=== PATIENT | male | born 1960 | race Caucasian/White ===

== ENCOUNTER 2017-08-13 16:09 | Inpatient (IN) ==
--- NOTE | 2017-08-13 16:24 | History & Physical Report ---
<Linda Condon - Last Filed: 08/13/17 16:35> History of Present Illness Date: 08/13/17 Chief complaint: "I'm sick of drinking" HPI: Mariano Mei is a 57 y/o male transferred to [facility] from [facility] in [place] for management of alcohol withdrawal symptoms. He's been drinking for years; he drinks about a quart of whiskey daily. He has been sober in the past but doesn't know for how long. He endorses anorexia and nausea. He developed "jet black" colored stools today. He denies abdominal pain but has had some intermittent bloating which he attributes to poor nutrition. He denies feeling weak or dizzy. He complains of "cold sweats" but denies any illnesses. No shaking or tremors currently and he denies a hx of EtOH withdrawal sz, hallucinations, or DTs. He denies SOA or chest pain. No injuries or wounds but states that he fell a couple of days ago. He denies easy bruising or bleeding. At [facility], labs showed elevated LFTs, hgb of 15.3, plt 185, and chemistries were stable. EtOH level was 387. EKG showed sinus tach. He received multiple doses of lorazepam while hospitalized for agitation. Review of Systems All systems PM: 10-point ROS was reviewed, no additional remarkable complaints except - Constitutional Constitutional: Present: anorexia, other (cold sweats). Absent: chills - EENMT Eyes: Absent: change in vision Nose: Absent: obstruction Mouth/Throat: Absent: sore throat - Cardiovascular Cardiovascular: Absent: chest pain - Respiratory Respiratory: Absent: cough - Gastrointestinal Gastrointestinal: Present: melena ("Jet black" - started today), nausea. Absent : abdominal pain, constipation, diarrhea, vomiting - Genitourinary Genitourinary: Absent: dysuria - Musculoskeletal Musculoskeletal: Absent: back pain, muscle weakness - Integumentary/Breasts Integumentary: Absent: rash, wounds - Neurological Neurological: Present: frequent falls (fell a couple of days ago) - Psychiatric Psychiatric: Present: anxiety, depression - Endocrine Endocrine: Absent: palpitations - Hematologic/Lymphatic Hematologic/Lymphatic: Absent: easy bleeding, easy bruising PFSH Alcohol abuse Surgical History: B/L ankle ORIF Family History: Father of lung cancer Mother - still living, has heart disease - Social History Smoking status: Current every day smoker Packs per day: 1 Packs-years: 30 Substance use type: does not use Substance last used: days (ago) (3-4) Alcohol intake frequency: 3 or more drinks per day (quart of whiskey/bourbon per day) Current occupational status: unemployed Social history: No PCP Medications Allergies Allergy/AdvReac Type Severity Reaction Status Date / Time No Known Allergies Allergy Verified 08/13/17 17:09 Exam Telemetry Rhythm: Sinus Tachycardia (occasional PAC) - Constitutional Present: no acute distress, thin - Routine HEENT Exam Head: Present: normocephalic Eye: Present: EOMI. Absent: conjunctival icterus ENT: Present: mucous membranes dry, oropharynx clear - Routine Neck Exam Present: supple - Routine Respiratory Exam Present: CTA bilaterally - Routine Cardiovascular Exam Present: RRR, S1, S2 - Routine Abdominal Exam Present: soft, normoactive bowel sounds, non distended, non tender. Absent: rebound, guarding - Routine Extremities Exam Present: no edema, pulses intact - Routine Skin Exam Present: intact, dry, warm - Routine Neurological Exam Present: alert, oriented X3, CN II-XII intact, normal speech - Routine Psychiatric Exam Present: normal thought process, cooperative. Absent: normal affect (flat affect; drowsy but appropriate) Assessment and Plan (1) Alcohol withdrawal Current visit: Yes Status: Acute DVT Prophylaxis: SCD's GI Prophylaxis: Protonix Resuscitation Status: Full Code Assessment and Plan: Impression EtOH abuse; withdrawal Melena Elevated LFTs (POA) Hypocalcemia (POA at outside facility) Tobacco dependency Plan Admit to CCU under the hospitalist service. Labs ordered upon arrival - pending. Sz precautions; Ativan, Serax, phenobarbital PRN. Start folate, thiamine, and MVI. Check stools for occult blood. Start PPI for GI protection - at high risk d/t chronic EtOH and tobacco use. Zofran PRN nausea. Further orders pending lab results. Discussed with Dr. Herron. Hospital Course Summary Disclaimer: The visit summary below is not to be considered part of the above Progress Note. Hospital Course: 08/13/17 Impression EtOH abuse; withdrawal Melena Elevated LFTs (POA) Hypocalcemia (POA at outside facility) Tobacco dependency Plan Admit to CCU under the hospitalist service. Labs ordered upon arrival - pending. Sz precautions; Ativan, Serax, phenobarbital PRN. Start folate, thiamine, and MVI. Check stools for occult blood. Start PPI for GI protection - at high risk d/t chronic EtOH and tobacco use. Zofran PRN nausea. Further orders pending lab results. Discussed with Dr. Herron. <Artie Herron D - Last Filed: 08/13/17 18:09> History of Present Illness Date: 08/13/17 Exam Height/Weight/BMI: Height 1.73 m Weight 65 kg Body Mass Index 21.7 Results - Labs CBC & Chem 7: 08/13/17 16:44 08/13/17 16:44 Assessment and Plan (1) Alcohol withdrawal Current visit: Yes Status: Acute Assessment and Plan: Impression EtOH abuse; withdrawal Melena Elevated LFTs (POA) Hypocalcemia (POA at outside facility) Hypophosphatemia (POA) Elevated lipase Nausea/vomiting Anorexia Tobacco dependency Have independently interviewed and examined patient. Chart reviewed. Case discussed with Dr Alves at [facility] and my [employer]. Care plan developed with my supervision; agree with above. Admitted to [facility] last night for alcohol withdrawal. 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 Will consume about at quart of ETOH. Oral drive has been decreasing-not taking in food well for the past several days. Increase nausea and ab pain. Admitted to [facility], this morning very agitated and restless-requiring multiple doses of Ativan (Dr Alves report running out of Ativan at their facility due to his needs). Transfer to [facility] for more intensive care. Seen in CCU. Patient resting in bed. Will arouse to verbal stimuli. Answers questions with short phrases. Does feel very tried. Not little appetite. Breathing stable. Lungs: clear bilaterally, no distress CV: tachy, regular AB: soft nd, BS decreased MSE: awake but somnolent. Not restless or agitated during my evaluation. Gen: looks tired. Plan: Inpatient admission at [facility] for ETOH withdrawal failing at outlying facility. Initiate ETOH withdrawal protocol. Will schedule Serax 30mg TID. Serax and lorazepam prn. IVF of NS with KCL and Kphos. IV Protonix due to likely alcoholic gastritis. Check stool for occult blood-monitor hemoglobin. Thiamine and Folic acid daily. Zofran prn nausea. SCD for DVT prevention. Recheck lipase in am due to elevation. Will need close nursing supervision. Seizure precautions. Hospital Course Summary Disclaimer: The visit summary below is not to be considered part of the above Progress Note.
[2017-08-13] MEDS ORDERED: PANTOPRAZOLE 20 MG TABLET PO SCH (17:00)
[2017-08-13] MEDS: POTASSIUM CHLORIDE INJ 20 MEQ, POTASSIUM PHOSPHATE (mEq) 20 MEQ in NS 1,000 ML IV SCH (17:51)
[2017-08-13] MEDS: OXAZEPAM 30 MG CAPSULE PO SCH ×3 (17:51→21:22)
[2017-08-13] MEDS: PANTOPRAZOLE 40 MG INJECTION IVP SCH (17:52)
[2017-08-13] MEDS: FOLIC ACID 1 MG TABLET PO SCH ×2 (17:52→18:45)
[2017-08-13] MEDS: ONDANSETRON 4 MG/2 ML INJECTION IVP PRN (17:55)
[2017-08-13] MEDS: OXAZEPAM 15 MG CAPSULE PO PRN (21:19)
[2017-08-14] MEDS: POTASSIUM CHLORIDE INJ 20 MEQ, POTASSIUM PHOSPHATE (mEq) 20 MEQ in NS 1,000 ML IV SCH ×3 (05:11→17:31)
[2017-08-14] MEDS: OXAZEPAM 15 MG CAPSULE PO PRN ×2 (05:12→16:05)
[2017-08-14] MEDS: ONDANSETRON 4 MG/2 ML INJECTION IVP PRN (07:23)
[2017-08-14] MEDS: PANTOPRAZOLE 40 MG INJECTION IVP SCH (09:55)
[2017-08-14] MEDS: OXAZEPAM 30 MG CAPSULE PO SCH (09:55)
[2017-08-14] MEDS: NICOTINE 21 MG PATCH TD PRN (09:55)
[2017-08-14] MEDS: MULTI-VITAMIN + MINERAL TABLET PO SCH (09:55)
[2017-08-14] MEDS: FOLIC ACID 1 MG TABLET PO SCH (09:55)
[2017-08-14] MEDS: NICOTINE PATCH REMOVAL TD SCH (09:56)
--- NOTE | 2017-08-14 12:06 | Progress Note ---
Subjective: F/U: Acute ETOH withdrawal. Resting in bed, easily awakened. Feels tired, weak, and shaky. Oral intake increasing-denies nausea or ab pain, but does not reflux/dyspepsia. Breathing feels stable-not SOA or congested. Unsteady with movements-struggled to reach for cup of water at bedside. Nursing notes episode of urinary/fecal urgency with incontinence. Seraz has been helping to decrease irritability and shakiness , but not causing sedation. Has been receiving IV lorazepam which appears to be beneficial. Objective Vital signs: Temperature 98.4 F 08/14/17 07:00 Pulse Rate 80 08/14/17 10:45 Respiratory Rate 19 08/14/17 10:45 Blood Pressure 129/82 08/14/17 10:30 Pulse Oximetry 98 08/14/17 10:45 Height/Weight/BMI: Height 1.73 m Weight 69.5 kg Body Mass Index 21.7 - Constitutional Present: mild distress, well nourished, well developed, other (Appears very weak and unsteady ) - Routine HEENT Exam Head: Present: normocephalic, atraumatic Eye: Present: EOMI, PERRL ENT: Present: mucous membranes moist Comments: Tongue without fasciculations - Routine Respiratory Exam Present: decreased breath sounds. Absent: rales, respiratory distress, rhonchi , stridor, wheezes, crackles - Routine Cardiovascular Exam Present: RRR, no murmur - Routine Abdominal Exam Present: soft, non distended, non tender. Absent: normoactive bowel sounds ( decreased ), guarding - Routine Extremities Exam Present: no edema, pulses intact. Absent: cyanosis, clubbing - Routine Musculoskeletal Exam Musculoskeletal: Present: no clubbing or cyanosis - Routine Skin Exam Present: dry, warm - Routine Neurological Exam Present: alert, moving all extremities, vision grossly intact, hearing grossly intact Unsteady, decreased coordination - Routine Psychiatric Exam Present: normal affect. Absent: anxious, agitated, manic Results - Labs CBC & Chem 7: 08/14/17 04:37 08/14/17 04:37 Assessment and Plan (1) Alcohol withdrawal Current visit: Yes Status: Acute DVT Prophylaxis: SCD's GI Prophylaxis: Protonix Resuscitation Status: Full Code Assessment and Plan: Impression EtOH abuse; withdrawal Melena Elevated LFTs (POA) Hypokalemia (POA) Hypocalcemia (POA at outside facility) Hypophosphatemia (POA) Elevated lipase Nausea/vomiting Anorexia Tobacco dependency Gen debility secondary to chronic ETOH use Plan Decrease IVF of NS with KCl/Kphos to 75cc/hr. Continue with Serax but increase to 45mg TID as patient still appearing shaky. Watch for oversedation. Continue prn lorazepam. PT/OT to start working to help functional status - not sure how much patient will be able to do today as he still appears weak and unsteady. Change Protonix to oral - have Tums and Maalox as needed for dyspepsia. Start Flomax as likely has underlying BPH symptoms. SW met with patient today. RT provided tobacco cessation information. Will continue CCU monitoring - concern with his shakiness and instability would not do well on medical floor at this time. Recheck CMP in a am due to elevated LFT. Will need to repeat Mg and Phos to assure these levels are normal. Check Lipase in am - slight increase from yesterday, but not having symptoms suggestive of pancreatitis. Case discussed with CCU nursing. Time spent with patient care 25 minutes. Hospital Course Summary Disclaimer: The visit summary below is not to be considered part of the above Progress Note. Hospital Course: 08/13/17 Admission to CCU Impression EtOH abuse; withdrawal Melena Elevated LFTs (POA) Hypokalemia (POA) Hypocalcemia (POA at outside facility) Hypophosphatemia (POA) Elevated lipase Nausea/vomiting Anorexia Tobacco dependency Gen debility secondary to chronic ETOH use Plan Admit to CCU under the hospitalist service. Labs ordered upon arrival - pending. Sz precautions; Ativan, Serax, phenobarbital PRN. Start folate, thiamine, and MVI. Check stools for occult blood. Start PPI for GI protection - at high risk d/t chronic EtOH and tobacco use. Zofran PRN nausea. Further orders pending lab results. 08/14/17 Decrease IVF of NS with KCl/Kphos to 75cc/hr. Continue with Serax but increase to 45mg TID as patient still appearing shaky. Watch for oversedation. Continue prn lorazepam. PT/OT to start working to help functional status - not sure how much patient will be able to do today as he still appears weak and unsteady. Change Protonix to oral - have Tums and Maalox as needed for dyspepsia. Start Flomax as likely has underlying BPH symptoms. SW met with patient today. RT provided tobacco cessation information. Will continue CCU monitoring - concern with his shakiness and instability would not do well on medical floor at this time. Recheck CMP in a am due to elevated LFT. Will need to repeat Mg and Phos to assure these levels are normal. Check Lipase in am - slight increase from yesterday, but not having symptoms suggestive of pancreatitis.
[2017-08-14] MEDS ORDERED: MAG-AL + SIM ORAL LIQUID 30ml PO PRN (12:18)
[2017-08-14] MEDS ORDERED: CALCIUM CARBONATE Chewable 750mg TABLET PO PRN (12:18)
[2017-08-14] MEDS ORDERED: POLYETHYL GLYCOL 3350 17gm PACKET PO PRN (12:19)
[2017-08-14] MEDS ORDERED: BISACODYL 10 MG SUPPOSITORY RECTALLY PRN (12:19)
[2017-08-14] MEDS ORDERED: OXAZEPAM 30 MG CAPSULE PO SCH (15:00)
[2017-08-14] MEDS ORDERED: INFLUENZA VAC QIV 2017-18 (Fluarix*)(>=3yo) 0.5ml IM ONE (15:08)
[2017-08-14] MEDS: OXAZEPAM 15 MG CAPSULE PO SCH ×2 (15:18→22:22)
[2017-08-14] MEDS: PHENOBARBITAL 130mg/ml INJECTION IV PRN ×2 (17:46→19:33)
[2017-08-14] MEDS: TAMSULOSIN 0.4 MG CAPSULE PO SCH (22:22)
[2017-08-15] MEDS: POTASSIUM CHLORIDE INJ 20 MEQ, POTASSIUM PHOSPHATE (mEq) 20 MEQ in NS 1,000 ML IV SCH (03:34)
[2017-08-15] MEDS ORDERED: MAGNESIUM SULFATE 1gm PREMIX 1 GM/100 ML BAG IV ONE (06:08)
[2017-08-15] MEDS: FOLIC ACID 1 MG TABLET PO SCH (10:42)
[2017-08-15] MEDS: OXAZEPAM 15 MG CAPSULE PO SCH ×3 (10:42→21:13)
[2017-08-15] MEDS: PANTOPRAZOLE 40 MG TABLET PO SCH (10:43)
[2017-08-15] MEDS: MULTI-VITAMIN + MINERAL TABLET PO SCH (10:43)
[2017-08-15] MEDS: NICOTINE 21 MG PATCH TD PRN (10:49)
[2017-08-15] MEDS: ONDANSETRON 4 MG/2 ML INJECTION IVP PRN (12:52)
[2017-08-15] MEDS ORDERED: NS (Bact) 30ml INJECTION IV PRN (12:54)
[2017-08-15] MEDS: NICOTINE PATCH REMOVAL TD SCH (12:58)
[2017-08-15] MEDS: POTASSIUM CHLORIDE INJ 60 MEQ in NS 1,000 ML IV SCH (13:07)
[2017-08-15] MEDS: SALINE FLUSH 10ml SYRINGE IV PRN ×2 (13:07→13:08)
--- NOTE | 2017-08-15 15:53 | Progress Note ---
- Date 08/15/17 Subjective: The patient was seen 15:45 in ICU. Care was discussed with nursing. The patient reports doing well and slept well during the night with the help of IV lorazepam.. Denies fevers, chills, sweats. He did get up this morning and worked with a OT and PT. The nurse reports earlier today while he was up in a chair, he pulled out his IV site and when she came in he was just sitting there watching the blood drip from his arm. He has been receiving oral Serax as well as IV Ativan. Earlier today today he complained of nausea requiring Zofran. He' s had a few loose stools which the nurse describes as soft brown. 2 attempts at sending a Hemoccults have been unfruitful today with the lab. Objective Vital signs: Temperature 97.8 F 08/15/17 12:00 Pulse Rate 98 08/15/17 15:31 Respiratory Rate 20 08/15/17 15:31 Blood Pressure 141/87 H 08/15/17 15:31 Pulse Oximetry 100 08/15/17 15:31 Height/Weight/BMI: Height 5 ft 8 in Weight 151 lb 0.266 oz Body Mass Index 21.7 - Additional findings Additional findings: In general, the patient is alert and oriented 3, cooperative with exam, and in no respiratory distress. HEENT: Head is atraumatic, normocephalic, no conjunctival petechiae, no oral thrush, mucous membranes are moist and pink. Lungs: Clear to auscultation without wheezes, crackles or rhonchi CV: Regular rate and rhythm without murmur Abdomen: Soft, nontender, bowel sounds are present, there is no guarding no rebound. Extremities: No clubbing, no cyanosis, no edema. Skin: Warm and dry no sign of rash Neuro: Patient is alert and requesting food. Results - Labs CBC & Chem 7: 08/15/17 04:53 08/15/17 04:53 Labs: Laboratory Tests 08/13/17 08/13/17 08/14/17 16:44 16:44 04:37 WBC 6.1 Hgb 12.1 L Plt Count 91 L Potassium Magnesium 1.6 AST 273 H 247 H ALT 192 H 174 H Lipase 686 H 701 H 08/14/17 08/15/17 08/15/17 04:37 04:53 04:53 WBC 5.2 4.6 Hgb 11.4 L 12.4 L Plt Count 83 L 76 L Potassium 3.3 L Magnesium 1.6 AST 184 H ALT 162 H Lipase 744 H Assessment and Plan (1) Alcohol withdrawal Current visit: Yes Status: Acute GI Prophylaxis: Protonix Resuscitation Status: Full Code Assessment and Plan: Impression EtOH abuse; acute withdrawal Melena-unable to get a fecal Hemoccult thus far Elevated LFTs (POA) Hypokalemia (POA) in spite of IV and oral supplements Hypocalcemia (POA at outside facility) resolved Hypophosphatemia (POA) resolved Elevated lipase remains elevated Nausea/vomiting improved with Zofran Anorexia Tobacco dependency on patch Gen debility secondary to chronic ETOH use Plan Will change to normal saline with 60 mEq of KCl at to 75cc/hr. Continue with Serax at 45mg TID as patient seems to be responding. Continue prn lorazepam. PT/OT to start working to help functional status Continue Protonix to oral - have Tums and Maalox as needed for dyspepsia. On Flomax as likely has underlying BPH symptoms. SW met with patient and the patient can potentially go to a treatment facility after discharge. He expresses that he is interested in that as well. RT provided tobacco cessation information. Will continue CCU monitoring - concern with his shakiness and instability would not do well on medical floor at this time. Recheck CMP in a am due to elevated LFT. Check Lipase in am remains increased but not having symptoms suggestive of pancreatitis. Case discussed with CCU nursing. Hospital Course Summary Disclaimer: The visit summary below is not to be considered part of the above Progress Note. Hospital Course: 08/13/17 Admission to CCU Impression EtOH abuse; withdrawal Melena Elevated LFTs (POA) Hypokalemia (POA) Hypocalcemia (POA at outside facility) Hypophosphatemia (POA) Elevated lipase Nausea/vomiting Anorexia Tobacco dependency Gen debility secondary to chronic ETOH use Plan Admit to CCU under the hospitalist service. Labs ordered upon arrival - pending. Sz precautions; Ativan, Serax, phenobarbital PRN. Start folate, thiamine, and MVI. Check stools for occult blood. Start PPI for GI protection - at high risk d/t chronic EtOH and tobacco use. Zofran PRN nausea. Further orders pending lab results. 08/14/17 Decrease IVF of NS with KCl/Kphos to 75cc/hr. Continue with Serax but increase to 45mg TID as patient still appearing shaky. Watch for oversedation. Continue prn lorazepam. PT/OT to start working to help functional status - not sure how much patient will be able to do today as he still appears weak and unsteady. Change Protonix to oral - have Tums and Maalox as needed for dyspepsia. Start Flomax as likely has underlying BPH symptoms. FIORELLA met with patient today. RT provided tobacco cessation information. Will continue CCU monitoring - concern with his shakiness and instability would not do well on medical floor at this time. Recheck CMP in a am due to elevated LFT. Will need to repeat Mg and Phos to assure these levels are normal. Check Lipase in am - slight increase from yesterday, but not having symptoms suggestive of pancreatitis. 08/15/17 16:00 Impression EtOH abuse; acute withdrawal Melena-unable to get a fecal Hemoccult thus far Elevated LFTs (POA) Hypokalemia (POA) in spite of IV and oral supplements Hypocalcemia (POA at outside facility) resolved Hypophosphatemia (POA) resolved Elevated lipase remains elevated Nausea/vomiting improved with Zofran Anorexia Tobacco dependency on patch Gen debility secondary to chronic ETOH use Plan Will change to normal saline with 60 mEq of KCl at to 75cc/hr. Continue with Serax at 45mg TID as patient seems to be responding. Continue prn lorazepam. PT/OT to start working to help functional status Continue Protonix to oral - have Tums and Maalox as needed for dyspepsia. On Flomax as likely has underlying BPH symptoms. FIORELLA met with patient and the patient can potentially go to a treatment facility after discharge. He expresses that he is interested in that as well. RT provided tobacco cessation information. Will continue CCU monitoring - concern with his shakiness and instability would not do well on medical floor at this time. Recheck CMP in a am due to elevated LFT. Check Lipase in am remains increased but not having symptoms suggestive of pancreatitis. Case discussed with CCU nursing.
[2017-08-15 18:45] VITALS: BMI 22.9
[2017-08-15] MEDS: TAMSULOSIN 0.4 MG CAPSULE PO SCH (21:14)
[2017-08-16] MEDS: OXAZEPAM 15 MG CAPSULE PO PRN (01:46)
[2017-08-16] MEDS: POTASSIUM CHLORIDE INJ 60 MEQ in NS 1,000 ML IV SCH (02:59)
[2017-08-16] MEDS: PANTOPRAZOLE 40 MG TABLET PO SCH (06:36)
--- NOTE | 2017-08-16 08:43 | Progress Note ---
- Date 08/16/17 Subjective: Pt was seen and examined at 8:35 am in ICU. He reports that he slept well last night. His IV was discontinued earlier this am. He remains on scheduled serax at 45 mg tid with occ prn supplements. He reports occasional diarrhea. Currently undergoing an interview with substance abuse counselor at the moment. Discussed with nursing. Appetite is better, he still has some impulsive actions- pulled out IV earlier, tries to get out of bed independently, but much improved from earlier this week. Denies tremors. Objective Vital signs: Temperature 98.4 F 08/16/17 04:00 Pulse Rate 91 08/16/17 05:00 Respiratory Rate 29 H 08/16/17 05:00 Blood Pressure 140/89 H 08/16/17 05:00 Pulse Oximetry 98 08/16/17 05:00 Height/Weight/BMI: Height 5 ft 8 in Weight 151 lb Body Mass Index 22.9 - Additional findings Additional findings: In general, the patient is alert and oriented 3, cooperative with exam, and in no respiratory distress. HEENT: Head is atraumatic, normocephalic, no conjunctival petechiae, mucous membranes are moist and pink. Lungs: Clear to auscultation without wheezes, crackles or rhonchi CV: Regular rate and rhythm without murmur Abdomen: Soft, nontender, bowel sounds are present, there is no guarding no rebound. Extremities: No clubbing, no cyanosis, no edema. Skin: Warm and dry no sign of rash Neuro: Patient is alert Results - Labs CBC & Chem 7: 08/16/17 04:36 08/16/17 04:36 Assessment and Plan (1) Alcohol withdrawal Current visit: Yes Status: Acute Assessment and Plan: Impression EtOH abuse; acute withdrawal Melena-Hemoccult negative stools nurses report his stools are not bloody or melanotic Elevated LFTs (POA) improving Hypokalemia (POA) resolved, IV fluids discontinued this morning Hypocalcemia (POA at outside facility) resolved Hypophosphatemia (POA) resolved Elevated lipase remains elevated Nausea/vomiting improved with Zofran Anorexia starting to improve, nurses report he requested breakfast this morning. Tobacco dependency on patch Gen debility secondary to chronic ETOH use Plan Continue with Serax at 45mg TID as patient is tolerating without lethargy. May be able to titrate down to 30 mg 3 times a day in the next few days.. Continue prn lorazepam. PT/OT working to improve his functional status Continue Protonix - have Tums and Maalox as needed for dyspepsia. On Flomax as likely has underlying BPH symptoms- may be able to discontinue this soon and observe for further symptoms . RT provided tobacco cessation information. May be able to transfer to a substance abuse program if accepted Lipase remains increased but not having symptoms suggestive of pancreatitis. Case discussed with CCU nursing. Hospital Course Summary Disclaimer: The visit summary below is not to be considered part of the above Progress Note. Hospital Course: 08/13/17 Admission to CCU Impression EtOH abuse; withdrawal Melena Elevated LFTs (POA) Hypokalemia (POA) Hypocalcemia (POA at outside facility) Hypophosphatemia (POA) Elevated lipase Nausea/vomiting Anorexia Tobacco dependency Gen debility secondary to chronic ETOH use Plan Admit to CCU under the hospitalist service. Labs ordered upon arrival - pending. Sz precautions; Ativan, Serax, phenobarbital PRN. Start folate, thiamine, and MVI. Check stools for occult blood. Start PPI for GI protection - at high risk d/t chronic EtOH and tobacco use. Zofran PRN nausea. Further orders pending lab results. 08/14/17 Decrease IVF of NS with KCl/Kphos to 75cc/hr. Continue with Serax but increase to 45mg TID as patient still appearing shaky. Watch for oversedation. Continue prn lorazepam. PT/OT to start working to help functional status - not sure how much patient will be able to do today as he still appears weak and unsteady. Change Protonix to oral - have Tums and Maalox as needed for dyspepsia. Start Flomax as likely has underlying BPH symptoms. SW met with patient today. RT provided tobacco cessation information. Will continue CCU monitoring - concern with his shakiness and instability would not do well on medical floor at this time. Recheck CMP in a am due to elevated LFT. Will need to repeat Mg and Phos to assure these levels are normal. Check Lipase in am - slight increase from yesterday, but not having symptoms suggestive of pancreatitis. 08/15/17 16:00 Impression EtOH abuse; acute withdrawal Melena-unable to get a fecal Hemoccult thus far Elevated LFTs (POA) Hypokalemia (POA) in spite of IV and oral supplements Hypocalcemia (POA at outside facility) resolved Hypophosphatemia (POA) resolved Elevated lipase remains elevated Nausea/vomiting improved with Zofran Anorexia Tobacco dependency on patch Gen debility secondary to chronic ETOH use Plan Will change to normal saline with 60 mEq of KCl at to 75cc/hr. Continue with Serax at 45mg TID as patient seems to be responding. Continue prn lorazepam. PT/OT to start working to help functional status Continue Protonix to oral - have Tums and Maalox as needed for dyspepsia. On Flomax as likely has underlying BPH symptoms. SW met with patient and the patient can potentially go to a treatment facility after discharge. He expresses that he is interested in that as well. RT provided tobacco cessation information. Will continue CCU monitoring - concern with his shakiness and instability would not do well on medical floor at this time. Recheck CMP in a am due to elevated LFT. Check Lipase in am remains increased but not having symptoms suggestive of pancreatitis. Case discussed with CCU nursing.
[2017-08-16] MEDS: OXAZEPAM 15 MG CAPSULE PO SCH ×3 (10:04→21:27)
[2017-08-16] MEDS: FOLIC ACID 1 MG TABLET PO SCH (10:04)
[2017-08-16] MEDS: MULTI-VITAMIN + MINERAL TABLET PO SCH (10:04)
[2017-08-16] MEDS: NICOTINE PATCH REMOVAL TD SCH (10:05)
[2017-08-16] MEDS: NICOTINE 21 MG PATCH TD PRN (10:05)
[2017-08-16] MEDS ORDERED: LORazepam 1 MG TABLET PO PRN (11:39)
[2017-08-16] MEDS ORDERED: ONDANSETRON ODT 4 MG TABLET PO PRN (18:51)
[2017-08-16] MEDS: TAMSULOSIN 0.4 MG CAPSULE PO SCH (21:27)
[2017-08-17] MEDS: PANTOPRAZOLE 40 MG TABLET PO SCH (05:53)
[2017-08-17] MEDS: NICOTINE PATCH REMOVAL TD SCH (08:41)
[2017-08-17] MEDS: OXAZEPAM 15 MG CAPSULE PO SCH ×2 (08:41→15:08)
[2017-08-17] MEDS: NICOTINE 21 MG PATCH TD PRN (08:41)
[2017-08-17] MEDS: FOLIC ACID 1 MG TABLET PO SCH (08:41)
[2017-08-17] MEDS: MULTI-VITAMIN + MINERAL TABLET PO SCH (08:41)
[2017-08-17 12:11] VITALS: BP 143/98; PULSE 100; RESP 25; TEMP 98.2; O2SAT 97
--- NOTE | 2017-08-17 13:37 | Discharge Instructions ---
Discharge Plan - Med Rec/Dispo Referrals/Follow Up: Hank Alves DO [Family Provider] - 2 Weeks Prescriptions: New Folic Acid [Folate] 1 mg PO DAILY tablet LORazepam [Ativan] 1 tab PO Q4H PRN #10 tab PRN Reason: Agitation Milk of Magnesia [Mom] 30 ml PO DAILY PRN udc PRN Reason: Constipation Multi-Vitamin + Mineral [Therapeutic - M] 1 tab PO DAILY tablet Nicotine Patch Removal 1 removal TD DAILY patch Ondansetron Odt [Zofran Po] 4 mg PO Q6H PRN tablet PRN Reason: Nausea &/Or Vomiting Oxazepam [Serax] 15 mg PO Q8H PRN #30 cap PRN Reason: Alcohol Withdrawl Symptoms PEG 3350 17gm PACKET [Miralax] 17 gm PO DAILY PRN packet PRN Reason: Constipation Tamsulosin [Flomax] 0.4 mg PO HS capsule CALCIUM CARBONATE Chewable [Tums Extra Strength] 750 mg PO PRN PRN tab.chew PRN Reason: Dyspepsia Mag-Al + Sim Oral Liq [Maalox Plus] 30 ml PO Q3H PRN udc PRN Reason: Dyspepsia Nicotine Patch [Nicoderm] 21 mg TD DAILY PRN patch PRN Reason: tobacco cessation Oxazepam [Serax] 45 mg PO TID #30 capsule Pantoprazole Tab [Protonix Tab] 40 mg PO ACB #0 tablet Discharge Instructions/Outpatient Orders: Provider Discharge Instructions Location: Determined By Patient - Disposition 01 Discharged Home, Self-Care
--- NOTE | 2017-08-17 13:54 | Cardiology Consult Note ---
<Payton Spivey - Last Filed: 08/17/17 14:12> History of Present Illness Consult date: 08/17/17 Requesting physician: Kirtsen Gamez Chief complaint: tachycardia History of present illness: Mariano Case is a 57 year old male transferred to [facility] CCU from [facility] in [place] for management of alcohol withdrawal symptoms. He's been drinking for years; he drinks about a quart of whiskey daily. EtOH level was 387. He denies a history of EtOH withdrawal symptoms, hallucinations, or DTs. He denies SOA or chest pain. EKG showed sinus tach. He received multiple doses of lorazepam while hospitalized for agitation. Today when he increases activity his heart rate when increase, but recovered quickly. Dr. Murphy is consulted for further evaluation. [facility] Alcohol abuse Surgical History: B/L ankle ORIF Family History: Father of lung cancer Mother - still living, has heart disease - Social History Smoking status: Current every day smoker Packs per day: 1 Packs-years: 30 Substance use type: does not use Alcohol intake: former Last drink: days (ago) Current residence: Apartment/Private Home Medications Allergies Allergy/AdvReac Type Severity Reaction Status Date / Time No Known Allergies Allergy Verified 08/13/17 17:09 Exam Vital signs: Temperature 98.2 F 08/17/17 12:00 Pulse Rate 100 08/17/17 12:00 Respiratory Rate 25 H 08/17/17 12:00 Blood Pressure 143/98 H 08/17/17 12:00 Pulse Oximetry 97 08/17/17 12:00 Results 08/16/17 04:36 08/16/17 04:36 Lipids 08/13/17 Range/Units 16:44 Cholesterol 98 L (132-199) MG/DL Cholesterol/HDL Ratio 1.0 (0-5.0) RATIO Intake and Output 08/16/17 08/17/17 08/17/17 22:59 06:59 14:59 Intake Total 180 / 180 237 / 237 810 / 810 Balance 180 / 180 237 / 237 810 / 810 Intake: Oral 180 / 180 237 / 237 810 / 810 Other: Urine Appearance Clear Urine Color Dark Theresa # Voids 1 1 1 # Bowel Movements 1 Weight 150 lb 5.684 oz Patient Weight 08/18/17 06:59 Weight 150 lb 5.684 oz - Imaging and Cardiology EKG results: image reviewed EKG interpretations - EKG EKG results cardiology: sinus rhythm EKG shows: tachycardia Assessment and Plan - Assessment and Plan (1) Alcohol withdrawal Status: Acute (2) Sinus tachycardia Status: Acute Telemetry and EKG reviewed by Dr. Murphy. Patient examined by Dr. Murphy and feels tachycardia is benign. Will give 500cc bolus before discharge to [facility]. Thank you for allowing us to participate in the care of this patient. Hospital Course Summary Disclaimer: The visit summary below is not to be considered part of the above Progress Note. <Loi Murphy - Last Filed: 08/21/17 08:27> Exam Vital signs: Temperature 98.2 F 08/17/17 12:00 Pulse Rate 100 08/17/17 12:00 Respiratory Rate 25 H 08/17/17 12:00 Blood Pressure 143/98 H 08/17/17 12:00 Pulse Oximetry 97 08/17/17 12:00 - Constitutional no acute distress, cooperative - Routine HEENT Exam Head: Present: normocephalic ENT: Present: mucous membranes moist - Routine Neck Exam Absent: JVD, carotid bruit - Routine Chest/Breast/Axilla Exam Chest wall: Absent: tenderness - Routine Respiratory Exam Present: CTA bilaterally. Absent: rales, wheezes - Routine Cardiovascular Exam Present: no murmur, tachycardia - Routine Abdominal Exam Present: soft - Routine Extremities Exam Present: no edema - Routine Skin Exam Present: intact, dry, warm - Routine Neurological Exam Present: alert, oriented X3 - Routine Psychiatric Exam Present: normal affect, normal thought process Results 08/16/17 04:36 08/16/17 04:36 EKG interpretations - Blocks, axis, hypertrophy, ST abn Repolarization changes or abnormalities: nonspecific abnormality, ST segment, and/or T wave Assessment and Plan - Attestation Attestation Narrative: 08/21/17 08:27 Recommendation After examining the patient I agree with the above assessment. I am involved in the formulation of the patient's plan of care. - Assessment and Plan (1) Sinus tachycardia Status: Acute (2) Alcohol withdrawal Status: Acute Hospital Course Summary Disclaimer: The visit summary below is not to be considered part of the above Progress Note.
--- NOTE | 2017-08-17 13:55 | Discharge Summary ---
Discharge Information Date of admission: 08/13/17 16:09 Attending Physician: Kirsten Gamez MD Primary care physician: Hank Alves DO Consults: 08/13/17 17:20 Dietary Consult [CONS] Routine Comment: Reason For Exam: 08/17/17 13:38 Physician Consult [CONS] Routine Consulting Provider: Loi Murphy Reason For Exam: tachycardia Ordering Provider has Notified [employer]: Yes - Discharge Diagnosis (1) Alcohol withdrawal Status: Acute - Laboratory Labs: 08/16/17 04:36 08/16/17 04:36 History of Present Illness HPI: Mariano Mei is a 57 y/o male transferred to [facility] CCU from [facility] in [place] for management of alcohol withdrawal symptoms. He's been drinking for years; he drinks about a quart of whiskey daily. He has been sober in the past but doesn't know for how long. He endorses anorexia and nausea. He developed "jet black" colored stools today. He denies abdominal pain but has had some intermittent bloating which he attributes to poor nutrition. He denies feeling weak or dizzy. He complains of "cold sweats" but denies any illnesses. No shaking or tremors currently and he denies a hx of EtOH withdrawal sz, hallucinations, or DTs. He denies SOA or chest pain. No injuries or wounds but states that he fell a couple of days ago. He denies easy bruising or bleeding. At [facility], labs showed elevated LFTs, hgb of 15.3, plt 185, and chemistries were stable. EtOH level was 387. EKG showed sinus tach. He received multiple doses of lorazepam while hospitalized for agitation. Objective Vital signs: Temperature 98.2 F 08/17/17 12:00 Pulse Rate 100 08/17/17 12:00 Respiratory Rate 25 H 08/17/17 12:00 Blood Pressure 143/98 H 08/17/17 12:00 Pulse Oximetry 97 08/17/17 12:00 Height/Weight/BMI: Height 5 ft 8 in Weight 150 lb 5.684 oz Body Mass Index 22.9 - Additional findings Additional findings: In general, the patient is alert and oriented 3, cooperative with exam, and in no respiratory distress. HEENT: Head is atraumatic, normocephalic, no conjunctival petechiae, no oral thrush, mucous membranes are moist and pink. Lungs: Clear to auscultation without wheezes, crackles or rhonchi CV: Tachycardic with heart rate in 130s Abdomen: Soft, nontender, bowel sounds are present, there is no guarding no rebound. Extremities: No clubbing, no cyanosis, no edema. Skin: Warm and dry no sign of rash Neuro: Patient is alert and calm. He denies any anxiety or tremors. Hospital Course This is a general summary of the patient's hospital course. For more details refer to the complete medical record. Hospital course: Impression EtOH abuse; withdrawal Melena Elevated LFTs (POA) Hypokalemia (POA) Hypocalcemia (POA at outside facility) Hypophosphatemia (POA) Elevated lipase Nausea/vomiting Anorexia Tobacco dependency Gen debility secondary to chronic ETOH use The patient was transferred to [place] for acute alcohol withdrawal secondary to the lack of sedative medications available at the transferring hospital. He was admitted to CCU and started on Serax with the dose increased to 45 mg 3 times a day as he continued to appear shaky. He had no signs of oversedation during his hospitalization. He was given early lorazepam for breakthrough shakiness intermittently during his hospitalization. Because of his weakness and unsteadiness, he worked with physical therapy and occupational therapy. He was also started on folate, thiamine, multivitamins. He had a negative stool for occult blood and was placed on a PPI for GI protection secondary to his high risk of ulcers due to his alcoholism and tobacco use. He is on a nicotine patch as well. His liver function tests peaked and then started to decrease during his hospitalization, however his lipase remained elevated although he had no signs or symptoms consistent with pancreatitis during his hospitalization. He was started on Flomax for possible BPH, this will need to be reevaluated by Dr. Alves as an outpatient. After discussions with social work, the patient was ready for discharge and has been accepted to an acute alcohol treatment center. At noon on the day of discharge, as he is sitting up in his chair, he is noted to have a heart rate of [address] De Jesus was asked to see the patient and ordered. 500 cc fluid challenge prior to transfer. Discharge Plan - Med Rec/Dispo Referrals/Follow Up: Hank Alves DO [Family Provider] - 2 Weeks Additional Instructions: Please note the patient's potassium was as low as 3.3 on August 15, he was given oral potassium supplementation and his potassium was up to 4.7 on the . Please recheck his BMP on Sunday. Dr. De Jesus is a consult was not available at the time of this discharge dictation, please include it in his discharge packet. Prescriptions: New Folic Acid [Folate] 1 mg PO DAILY tablet LORazepam [Ativan] 1 tab PO Q4H PRN #10 tab PRN Reason: Agitation Milk of Magnesia [Mom] 30 ml PO DAILY PRN udc PRN Reason: Constipation Multi-Vitamin + Mineral [Therapeutic - M] 1 tab PO DAILY tablet Nicotine Patch Removal 1 removal TD DAILY patch Ondansetron Odt [Zofran Po] 4 mg PO Q6H PRN tablet PRN Reason: Nausea &/Or Vomiting Oxazepam [Serax] 15 mg PO Q8H PRN #30 cap PRN Reason: Alcohol Withdrawl Symptoms PEG 3350 17gm PACKET [Miralax] 17 gm PO DAILY PRN packet PRN Reason: Constipation Tamsulosin [Flomax] 0.4 mg PO HS capsule CALCIUM CARBONATE Chewable [Tums Extra Strength] 750 mg PO PRN PRN tab.chew PRN Reason: Dyspepsia Mag-Al + Sim Oral Liq [Maalox Plus] 30 ml PO Q3H PRN udc PRN Reason: Dyspepsia Nicotine Patch [Nicoderm] 21 mg TD DAILY PRN patch PRN Reason: tobacco cessation Oxazepam [Serax] 45 mg PO TID #30 capsule Pantoprazole Tab [Protonix Tab] 40 mg PO ACB #0 tablet Discharge Instructions/Outpatient Orders: Provider Discharge Instructions Location: Determined By Patient - Disposition 01 Discharged Home, Self-Care
== END 2017-08-17 15:39 | DRG 897 ==
LOC: CCU 16:09 → SUATTDRO 16:09
PROVIDERS: ADMIT Internal Medicine Infectious Disease; ATTEND Internal Medicine Infectious Disease